=== PATIENT | male | born 1940 | race Caucasian/White ===

== ENCOUNTER 2025-03-16 18:11 | Emergency (ER) | payer OTHER, MEDICARE, SELFPAY ==
--- OUTSIDE RECORDS SUMMARY | 2023-09-28 19:00 | XMS_ITS | Continuity of Care Document ---
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 Name Role Phone Erik DE LA CRUZ, Rosanna Unavailable Unavailable Procedures Procedure Date Subsqt Hosp-da E&m Minr Compl 3 Subsqt Hosp-da E&m Minr Compl 3 Init Hosp-da E&m Hi Severity 7 23 Ugi Endo; W/bx 1/mx Conscious Sedation Advance Directives Directive Yes / No Effective Date File Name No Information Encounters Encounter Description Practice Location Reason(s) For Visit Diagnoses Date Provider Providers Copied on Encounter Subsqt Hosp-da E&m Minr Compl [facility] [place], [address] [address], [place], [place], [id number], [place] tel:[phone] [facility] No Information 3 Erik Marte. [address] [place] [address], [address], [id number] , [place]. [phone] Referring Provider: Rosanna Valencia NP P, [address] [place] [address] [address], [place], [address] . tel:[phone] Init Hosp-da E&m Hi Severity 7 [facility] [place], [address] [address], [place], [place], [id number], [place] tel:[phone] [facility] No Information 3 Aleksandra Swift. [address] [place] [address], [facility] [address], [place], [place], [id number] , [place]. [phone] Referring Provider: Cristi Ledezma, [address], [place], [address]. tel:[phone] Family History Family Member Type Diagnosis Age At Onset No Information Payers Payer name Insurance type Covered green party ID Authoriza tion(s) [facility] Medic are Complete CI [id number] Social History Type Description Quantity Date Captured Comments Sex Male Smoking Status No Information Chief Complaint And Reason For Visit No Information Reason For Referral Reason For Referral No Information History Of Present Illness Encounter Date Complaint History Of Prese nt Illness No Information Functional Status Date Functional Assessmen t No Information Instructions Date Instruction Additional Infor mation No Information Assessments Type Assessment Date No Information Patient Care Teams Name Effective Dates (start - stop) Status Members No Information
--- OUTSIDE RECORDS SUMMARY | 2023-09-28 19:00 | XMS_ITS | Continuity of Care Document ---
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 [address] [place] [address], [address], [id number] , [place]. [phone] Referring Provider: Rosanna Valencia NP P, [address] [place] [address] [address], [place], [address] . tel:[phone] Init Hosp-da E&m Hi Severity 7 [facility] [place], [address] [address], [place], [place], [id number], [place] tel:[phone] [facility] No Information 3 Aleksandra Swift. [address] [place] [address], [facility] [address], [place], [place], [id number] , [place]. [phone] Referring Provider: Cristi Ledezma, [address], [place], [address]. tel:[phone] Family History Family Member Type Diagnosis Age At Onset No Information Payers Payer name Insurance type Covered democrat ID Authoriza tion(s) [facility] Medic are Complete CI [id number] Social History Type Description Quantity Date Captured [...]
[2025-03-16] VITALS (19 sets, daily range): BP systolic 137–173; BP diastolic 84–111; PULSE 68–84; RESP 18; TEMP 36.8–36.9; O2SAT 92–99; BMI 32.3
--- OUTSIDE RECORDS SUMMARY | 2025-03-16 18:14 | XMS_ITS | Clinical Summary ---
Author Organization [facility] Address [address] [place] [address] Care Team Providers Care Central Scheduler Name Role Phone Cristi Rosas [place] Primary Care Provider [phone] Allergies No known active allergies Medications albuterol (PROAIR HFA/PROVENTIL HFA/VENTOLIN HFA) 108 (90 Base) MCG/ACT inhaler 1 Active atorvastatin (LIPITOR) 40 MG tablet Take 40 mg by mouth daily 1 Active beclomethasone HFA (QVAR REDIHALER) 80 MCG/ACT inhaler Inhale 2 puffs into the lungs 1 Active doxycycline hyclate (VIBRAMYCIN) 100 MG capsule Take 100 mg by mouth 1 Active blood glucose (CONTOUR NEXT TEST) test strip USE TO TEST DAILY DIRECTED 1 Active hydrocortisone (CORTAID) 1 % external cream 1 Active ketoconazole (NIZORAL) 2 % external cream 1 Active simvastatin (ZOCOR) 40 MG tablet 1 Active sotalol (BETAPACE) 120 MG tablet Take 120 mg by mouth 1 Active warfarin ANTICOAGULANT (COUMADIN) 2 MG tablet Take by mouth 9 mg (2 mg x 4.5) every Tue, Tue; 8 mg (2 mg x 4) all other days Or as directed 1 Active Family History Medical History Relation Comments Prostate Cancer Father Relation Status Comments Father Social History Tobacco Use Types Packs/Day Years Used Date Smoking Tobacco: Former Smokeless Tobacco: Former Alcohol Use Standard Drinks/Week Comments Not Currently 0 (1 standard drink = 0.6 oz pur e alcohol) Adolescent Education Answer Date Record ed Getting School Help Needed Not on file 07/24 Sex and Gender Information Value Date Recorded Sex Assigned at Not on file Legal Sex Male 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 Gender Identity Not on file Sexual Orientation Not on file Last Filed Vital Signs Vital Sign Reading Time Taken Comments Blood Pressure 114/72 08/31/2021 12:00 PM ALTERATION INSPECTOR Pulse 69 08/31/2021 12:00 PM ALTERATION INSPECTOR Temperature - - Respiratory Rate 20 08/31/2021 12:00 PM ALTERATION INSPECTOR Oxygen Saturation 98% 08/31/2021 12:00 PM ALTERATION INSPECTOR Inhaled Oxygen Concentration - - Weight 81.6 kg (180 lb) 08/31/2021 9:50 AM ALTERATION INSPECTOR Height 180.3 cm (5' 11) 08/31/2021 9:50 AM ALTERATION INSPECTOR Body Mass Index 25.1 08/31/2021 9:50 AM ALTERATION INSPECTOR Plan of Treatment Not on file Insurance [employer]AGE Care Teams Central Scheduler Relationship Specialty Start Date End Date Cristi Rosas [address] [place] [address] PCP - General Family Medicine 08/25/21
--- OUTSIDE RECORDS SUMMARY | 2025-03-16 18:14 | XMS_ITS | Clinical Summary ---
Author Organization [facility] Address [address] [place] [address] Care Team Providers Care General Office Associate Name Role Phone Cristi Rosas MD Primary Care Provider Otis Delcid Unavailable Allergies Active Allergy Reactions Criticality Noted Date Comments Indomethacin Other - Describe In Comment Field 07/06/2017 confusion Penicillins Other - Describe In Comment Field 02/11/2017 Patient report positive skin test years ago Ragweed Pollen Runny Nose 02/11/2017 Sulfa (Sulfonamide Antibiotics) Hives High 07/12/2018 Medications cetirizine (ZYRTEC) 10 mg tablet Take 10 mg by mouth once daily if needed for Allergy Symptoms. 0 017 Active multivitamins-min erals-lutein (Multivitamin 50 Plus) tab tablet Take 1 Tablet by mouth once daily. Active clindamycin (CLEOCIN) 300 mg capsuleIndication s:SBE (subacute bacterial endocarditis) prophylaxis candidate TAKE 2 CAPSULES BY MOUTH 1 HOUR BEFORE DENTAL PROCEDURE. 2 Capsule 2 024 Active atorvastatin (LIPITOR) 40 mg tabletIndications :Hyperlipidemia, unspecified hyperlipidemia type Take 1 Tablet (40 mg) by mouth at bedtime. 90 Tablet 3 024 Active tamsulosin (FLOMAX) 0.4 mg capsuleIndication s:Urinary retention Take 1 Capsule (0.4 mg) by mouth once daily after a meal. 90 Capsule 3 024 Active carvediloL (COREG) 3.125 mg tabletIndications :Persistent atrial fibrillation (HC),Chronic systolic CHF (congestive heart failure) (HC) Take 1 Tablet (3.125 mg) by mouth two times daily with meals. Further refills will be given at follow up in February of 2025. 180 Tablet 3 025 Active ezetimibe 10 mg tabletIndications :Hyperlipidemia, unspecified hyperlipidemia type Take 1 Tablet (10 mg) by mouth once daily. 90 Tablet 3 025 Active metFORMIN 500 mg Extended-Release tabletIndications :Controlled type 2 diabetes mellitus without complication, without long-term current use of insulin (HC) Take 1 Tablet (500 mg) by mouth once daily. 90 Tablet 1 025 Active beclomethasone dipropionate (Qvar RediHaler) 80 mcg/actuation HFAb HFA inhalerIndication s:Moderate persistent asthma without complication (HC) Inhale 1 Puff by mouth two times daily. Doesn't need a spacer or shaking. 10.6 g 12 025 Active olmesartan 5 mg tabletIndications :Essential hypertension Take 1 Tablet (5 mg) by mouth once daily. 90 Tablet 3 025 Active warfarin 2 mg tabletIndications :Persistent atrial fibrillation (HC),Anticoagulat ion monitoring, INR range 2-3 Take by mouth 10 mg (2 mg x 5) every e, Tue; 8 mg (2 mg x 4) all other days in the evening OR as directed 400 Tablet 025 Active albuterol HFA 90 mcg/actuation inhalerIndication s:Moderate persistent asthma without complication (HC) INHALE 2 INHALATIONS BY MOUTH EVERY 6 HOURS IF NEEDED FOR SHORTNESS OF BREATH 34 g 3 025 Active doxycycline hyclate 100 mg capsuleIndication s:Rosacea TAKE 1 CAPSULE 5 DAYS PER WEEK (TUESDAY, TUESDAY, TUESDAY, TUESDAY, TUESDAY) 60 Capsule 5 025 Active blood sugar diagnostic (Contour Next Test Strips) stripIndications: Controlled type 2 diabetes mellitus without complication, without long-term current use of insulin (HC) As directed once daily. 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 Quick on 09/12/2023 S/P AVR (aortic valve replacement) 09/12/2023 09/12/2023 Overview (09/12/2023): Valve Aortic 25mm Inspirus Resilia Tissue - [id number] Expires:07/13/2027Implanted by:Froy Rice S/P left atrial appendage ligation 09/12/2023 09/12/2023 Overview (09/12/2023): Occluder COLEEN 45mm Atriclip Flex V Exclusion Sys - [id number] Implanted by:Froy Rice Dilated cardiomyopathy 09/06/2023 Overview (09/06/2023): EF 30-35% Pulmonary hypertension 01/27/2022 Persistent atrial fibrillati on (HC) per 06/25/21 discharge note 07/11/2021 Atrioventricular node dysfunction 06/25/2021 LBBB (left bundle branch block) 06/25/2021 S/P dual chamber permanent p acemaker implantation on 06/25/2021 06/25/2021 Anticoagulation monitoring, INR range 2-3 2020 Rosacea 02/01/2019 Controlled type 2 diabetes m ellitus without complication, without long-term current use of insulin 07/06/2017 Uncomplicated asthma 07/06/2017 Hyperlipidemia, unspecified 02/11/2017 Essential hypertension 02/11/2017 Resolved Problems Problem Noted Date Diagnosed Date Resolved Date Acute upper GI bleed 09/28/2023 024 Acute blood loss anemia 09/28/202307/17 Coagulopathy 09/28/2023 01/31/2024 On mechanically assisted ventilation 09/12/2023 01/31/2024 Groin hematoma 09/11/2023 07/30/2024 Nonrheumatic aortic valve stenosis 09/06/2023 07/30/2024 Cardiovascular symptoms 09/06/202307/17 Prediabetes 02/11/2017 07/06/2017 Encounters Date Type Department Care Team Description 03/09/2025 Telephone [facility] [[email or web address] [address] [place] [address] Cristi Rosas MD Anticoagulation (OPV DOXYCYCLINE) 03/08/2025 1:30 PM CDT Office Visit [facility] [address] [place] [address] Jeannine Gibbs MD Follow Up (Follow up S/P AVR ) 03/08/2025 Travel 03/07/2025 Refill [facility] [[email or web address]] [address] [place] [address] Cristi Rosas MD Refill Request (T/S contour next test strip) 03/07/[address] [address] Cristi Rosas MD Refill Request (Doxycycline Hyclate) 03/01/2025 11:15 AM CDT Orders Only [address] [address] [place] [facility] 03/01/2025 10:00 AM CDT Ancillary Procedure [facility] [address] [place] [address] 03/01/2025 Anticoagulation (warfarin) [facility] [[email or web address] [address] [place] [address] 1, [place] [facility] Anticoagulation 03/01/2025 Travel 02/26/2025 Telephone [facility] [[email or web address]] [address] [place] [address] Cristi Rosas MD Anticoagulation (Lab Clarification ) 02/07/2025 Orders Only [facility] Scanner 1 scan: (1-Ord) [facility], 02/07/2025 02/03/2025 Refill [facility] [[email or web address]] [address] [place] [address] Cristi Rosas MD Refill Request (Albuterol Hfa) 02/01/2025 Refill [facility] [[email or web address]] [address] [place] [address] Cristi Rosas MD Refill Request (Warfarin) 01/31/2025 9:45 AM CDT Office Visit [facility] [[email or web address]] [address] [place] [address] Crsiti Rosas MD Diabetes (6 month follow up) 01/31/2025 Anticoagulation (warfarin) [facility] [[email or web address]] [address] [place] [address] 1, [facility] [facility] Anticoagulation 01/31/2025 Travel 01/19/2025 Anticoagulation (warfarin) [facility] [[email or web address]] [address] [place] [address] Cristi Rosas MD Anticoagulation (Out of state lab); Error-please disregard (opened in error) 01/18/2025 Orders Only [facility] Scanner 1 scan: (1-Ord) [facility], INR/PRO TIME RESULTS, 01/18/2025 12/19/2024 Orders Only [facility] Scanner 1 scan: (1-Ord) [facility], PT, 12/19/2024 12/19/2024 Telephone [facility] [[email or web address]] [address] [facility] [address] Cristi Rosas MD Anticoagulation (Out of State) 12/19/2024 Anticoagulation (warfarin) [facility] [[email or web address]] [address] [place] [address] 1, [place] [facility] Anticoagulation (Out of State) 12/18/2024 Orders Only [facility] Scanner 1 scan: (1-Ord) [facility], PROTHROMBIN TIME , 12/18/2024 from Last 3 Months Immunizations Immunization Administration Dates Next Due COVID-19 vaccine (Moderna 100mcg/0.5mL) REBECCA QUINTANA 01/09/2021,12/12/2020 Influenza, Inactivated AIIV4 (Age 65+ Years) Preserv Free 07/26/2023,07/21/2022,07/29/2021,07/30 Influenza, Inactivated IIV3 (Age 65+ Years) Preserv Free 07/30/2024,07/04/2019,06/26/2018,07/06 Pneumococcal Conj 20-valent (Prevnar 20) 07/30/2024 Pneumococcal Poly,23-Valent (Pneumovax) 08/30/2007 Pneumococcal, Unspecified 02/04/2015,08/30/2007 RSV, Recombinant ADJ Reconst ituted (Arexvy 120MCG/0.5mL) 08/01/2023 Tdap 07/25/2014 Zoster (Shingrix-RZV, recombinant) 07/17/2019, Zoster (Zostavax-ZVL, live) 02/17/2011 Family History Medical History Relation Name Comments Cancer-prostate Father Diabetes type II Mother Relation Name Status Comments Father Mother Social History Tobacco Use Types Packs/Day Years Used Date Smoking Tobacco: Former Cigarettes 1 20 0 10/17/1959 - 10/17/1979 Smokeless Tobacco: Never Tobacco Cessation:Counseling Given: Yes Alcohol Use Standard Drinks/Week Comments Yes 0 (1 standard drink = 0.6 oz pur e alcohol) occasional beer PHQ-2 Answer Date Recorded PHQ-2 TOTAL SCORE 0 07/30/2024 Social Connections Answer Date Recorded Do you often feel lonely or isolated from those around you? 0 01/31/2025 Financial Resource Strain Answer Date R ecorded Difficulty of Paying Living Expenses 3 01/31/2025 Difficulty of Paying Living Expenses Not on file 01/31/2025 Food Insecurity Answer Date Recorded Do you worry your food will run out before you are able to buy more? 1 01/31/2025 Transportation Needs Answer Date Record ed Does lack of transportation keep you from medica l appointments? 1 01/31/2025 Does lack of transportation keep you from work, meetings or getting things that you need? 1 01/31/2025 Housing Stability Answer Date Recorded What is your housing situation today? 1 01/31/2025 Utilities Answer Date Recorded Do you have trouble paying f or utilities (for example, heat, electricity, water, phone)? 1 01/31/2025 Sex and Gender Information Value Date Recorded Sex Assigned at Not on file Legal Sex Male 12:08 PM CDT Gender Identity Not on file Sexual Orientation Not on file Obstetrics History Last Filed Vital Signs Vital Sign Reading Time Taken Comments Blood Pressure 161/96 03/08/2025 1:28 PM CDT Pulse 75 03/08/2025 1:28 PM CDT Temperature 36.6 C (97.8 F) 11/02/2023 9:29 AM ASSISTANT PRODUCE MANAGER Respiratory Rate 16 11/02/2023 9:29 AM ASSISTANT PRODUCE MANAGER Oxygen Saturation 98% 03/08/2025 1:28 PM CDT Inhaled Oxygen Concentration - - Weight 84.8 kg (187 lb) 03/08/2025 1:28 PM CDT Height 178.4 cm (5' 10.24) 07/30/2024 9:07 AM C DT Body Mass Index 26.65 07/30/2024 9:07 AM CDT Plan of Treatment Upcoming Encounters Date Type Department Care Team (Late st Contact Info) Description 03/28/2025 Cardiac Device Check [facility] [place] [facility] [place] [phone] 03/29/2025 1:15 PM CDT Orders Only [facility] [[email or web address]] [address] [facility] [place] [address] [place] 07/30/2025 7:30 AM CDT Orders Only [facility] [[email or web address]] [address] [place] [address] [place] 07/31/2025 9:15 AM CDT Office Visit [facility] [[email or web address]] [address] [place] [address] Cristi Rosas MD [address] [place] [address] Health Maintenance Due Date Last Done Comments COVID-19 vaccine series ( season) 2024 09/14/2021, 01/09/2021, 12/12/2020 Tetanus booster 07/25/2024 07/25/2014 BMI (ht and wt on same day) for age 18+ 07/30/2025 07/30/2024, 08/18/2023, 07/26/2023, Additional history exists Depression screening for age 12+ 07/30/2025 07/30/2024, 07/29/2023, 07/26/2023, Additional history exists Medicare Wellness for age 65+ 07/31/2025 07/30/2024, 07/26/2023, 07/29/2021, Additional history exists Tdap Completed 07/25/2014 Zoster (shingles) series for age 50+ Completed 07/17/2019, 05/01/2019, 02/17/2011 RSV vaccine for adults or Completed 08/01/2023 Influenza Vaccine Completed 07/30/2024, , 07/21/2022, Additional history exists Pneumococcal series for age 50+ Completed 07/30/2024, 02/04/2015, 08/30/2007, Additional history exists Hepatitis B series for 19+ Aged Out N o longer eligible based on patient's age to complete this topic Medical Devices Implanted Type Area Safety Fire Boss Device Identifier Shelf Expiration Date Model / Serial / Lot Occluder Coleen 45mm Atriclip Flex V Exclusion Sys - [id number] Implanted:Qty: 1 on 09/12/2023 by Froy Rice MD at [facility] N/A: Heart [employer] 06/17/2026 [id number] / [id number] Valve Aortic 25mm Inspirus Resilia Tissue - [id number] Implanted:Qty: 1 on 09/12/2023 by Froy Rice MD at [facility] N/A: Heart [employer] 07/13/2027 [id number] / [id number] / Procedures Procedure Name Priority Date/Time Associated Diagnosis Comments PROTIME-INR Routine 03/01/2025 10:33 AM CDT Persistent atrial fibrillation (HC) per 06/25/21 discharge note Anticoagulation monitoring, INR range 2-3 BASIC METABOLIC PANEL Routine 03/01/2025 10:33 AM CDT Essential hypertension ECHO TTE COMPLETE WO CONTRAST Routine 03/01/2025 10:18 AM CDT S/P AVR SCAN-EYE EXAM 02/07/2025 12:00 AM CDT HEMOGLOBIN A1C MONITORING (POCT) Routine 01/31/2025 10:21 AM CDT Controlled type 2 diabetes mellitus without complication, without long-term current use of insulin (HC) PROTIME-INR Routine 01/31/2025 10:20 AM CDT Persistent atrial fibrillation (HC) per 06/25/21 discharge note Anticoagulation monitoring, INR range 2-3 SCAN-LABORATORY REPORT 01/18/2025 12:00 AM CDT SCAN-LABORATORY REPORT 12/19/2024 12:00 AM ASSISTANT PRODUCE MANAGER SCAN-LABORATORY REPORT 12/18/2024 12:00 AM ASSISTANT PRODUCE MANAGER INR,POCT Routine 12/18/2024 from Last 3 Months Results * (ABNORMAL) PROTIME-INR [12922.0] - Standing Order (03/01/2025 10:33 AM CDT) Only the most recent of2 resultswithin the time period is included. INR 2.4(H) <1.3 03/01/2025 3:32 PM CDT [facility] PROTIME 28.2(H) 10.6 - 12.4 sec 03/01/2025 3:32 PM CDT [facility] Blood BLOOD SPECIMEN / Unknown [facility] / Unknown 03/01/2025 10:33 AM CDT 03/01/2025 10:[address] [facility] - 03/01/2025 3:32 PM CDT Therapeutic Range 2.0-3.0 for most anticoagulated patients 2.5-3.5 or 4.0 for high risk patients The INR is only used for patients on stable oral anticoagulant therapy. It makes no significant contribution to the diagnosis or treatment of patients whose Protime is prolonged for other reasons. INR results are increased when heparin levels exceed 1.0 U/mL, which corresponds to an aPTT >125 seconds if the patient is on UFH. us Cristi Rosas MD HEMATOLOGY Final Result [facility] [address] [place] [address], * (ABNORMAL) BASIC METABOLIC PANEL (03/01/2025 10:33 AM CDT) GLUCOSE 129(H) 65 - 99 mg/dL [facility] Comment: Fasting reference interval For someone without known diabetes, a glucose value >125 mg/dL indicates that they may have diabetes and this should be confirmed with a follow-up test. UREA NITROGEN (BUN) 18 7 - 25 mg/dL [facility] CREATININE 0.74 0.70 - 1.22 mg/dL [facility] EGFR 89 > OR = 60 mL/min/1. 73m2 [facility] BUN/CREATININE RATIO SEE NOTE: 6 - 22 (calc) [facility] Comment: Not Reported: BUN and Creatinine are within reference range. SODIUM 139 135 - 146 mmol/L [facility] POTASSIUM 4.4 3.5 - 5.3 mmol/L [facility] CHLORIDE 105 98 - 110 mmol/L [facility] CARBON DIOXIDE 27 20 - 32 mmol/L [facility] ELECTROLYTE BALANCE 7 7 - 17 mmol/L (calc) [facility] CALCIUM 9.9 8.6 - 10.3 mg/dL [facility] Blood BLOOD SPECIMEN / Unknown 03/01/2025 10:33 AM CDT 03/01/2025 10:33 AM CDT us Cristi Rosas MD CHEMISTRY Final Result [facility] [address] [place] [address], [facility] [address] [place] [address] * ECHO TTE COMPLETE WO CONTRAST (03/01/2025 10:18 AM CDT) AORTIC VALVE MEAN PG 10 mmHg EJECTION FRACTION 41 % PEAK TR VELOCITY 2.8 m/s LVEDD 4.9 cm Anatomical Region Laterality Modality Ultrasound 03/01/2025 9:53 AM CDT Narrative 03/01/2025 10:35 AM CDT ECHOCARDIOGRAM MILA ESPINO : 1940 85 years Study Date: 03/01/2025 9:53:56 AM Gender: M BP: 152/80 mmHg Height: 178.00 cm BSA: 2.01 m Weight: 83.00 kg Tech: JULIETH Referring MD: JEANNINE GIBBS Site: [facility] Reading Location: Mobile-OP Patient Location: Outpatient. Procedure: 2D, Color Doppler and Spectral Doppler. Indication for study: S/P AVR Cardiac Rhythm: Ventricular paced.Study quality: Good. Final Impressions: 1. Normal left ventricular size, normal wall thickness, mildly reduced global systolic function, calculated EF of 41 %. 2. Abnormal septal motion consistent with RV pacemaker. 3. Inferior wall is hypokinetic. 4. Right ventricular cavity size is normal, global systolic RV function is moderately reduced. 5. The aortic valve is Inspiris bioprosthesis AVR, no stenosis (details below) and no regurgitation. 6. The mitral valve is normal, mild mitral regurgitation. 7. Normal estimated pulmonary pressures by tricuspid regurgitation velocity and right atrial pressure (31 mmHg plus RAP). Comparison Compared to prior exam of 02/22/24: Estimated pulmonary artery systolic pressure is now normal. Chamber Sizes and Function Normal left ventricular size, normal wall thickness, mildly reduced global systolic function, calculated EF of 41 %. Abnormal (paradoxical) septal motion, consistent with RV pacemaker. Left atrial size is mildly enlarged. Left atrial pressure is normal. Right ventricular cavity size is normal, global systolic RV function is moderately reduced. RV wall thickness is normal. The right atrium is mildly enlarged. Right atrial volume index is 50 ml/m . Right atrial area is 28 cm . The pulmonary artery is of normal size and origin. The sinus of Valsalva is normal sized. The ascending aorta is normal for age/sex/bsa. The inferior wall is hypokinetic. Valves, RV Pressures and Diastolic Function The aortic valve is Inspiris bioprosthesis replacement, no stenosis and no regurgitation. The mitral valve is normal in structure, mild mitral regurgitation. Indeterminate pattern of LV diastolic filling. The tricuspid valve is normal in structure, mild tricuspid regurgitation. The tricuspid regurgitant velocity is 2.8 m/s, the estimated right ventricular systolic pressure is 31 mmHg plus right atrial pressure. There is normal estimated pulmonary pressure by tricuspid regurgitation velocity and right atrial pressure. The pulmonic valve is normal. No pulmonary regurgitation. Masses, Effusion, Shunts There is no pericardial effusion. The inferior vena cava is normal sized, respiratory size variation greater than 50%. No left to right shunting was detected by limited color flow Doppler interrogation of the interatrial septum. MEASUREMENTS AND CALCULATIONS 2-D Measurements and LV Function: LVID (d) 4.9 cm Planimetered EF 41 % LVID (s) 3.9 cm LV FS% (2D) 19 % IVS (d) 0.9 cm LVOT diameter 2.1 cm LVPW (d) 1.0 cm HR 73 bpm Ao Sinus ULN 4.2 cm * LA Vol index 36 ml/m2 Asc Ao 3.9 cm RA Vol index 50 ml/m2 Asc Ao ULN 4.4 cm * RA area 28 cm LA 4.6 cm RV Basal Diam 3.4 cm * Input age outside of range, reported values correspond to Age = 80 Diastology: Mitral Tissue Doppler E Peak 0.8 m/s e', Septum 0.05 m/s DT 207 msec e', Lateral 0.12 m/s E/e' Average 9.96 Aortic Valve: Vmax 2.0 m/s JULIANNE (V) 1.38 cm VTI 0.39 m JULIANNE (I) 1.41 cm LVOT V max 0.8 m/s Max PG 16 mmHg LVOT VTI 0.16 m Mean PG 10 mmHg SV 55 ml Dim Index 0.42 SV index 27 ml/m CO 4.0 l/min CI 2.0 l/min/m Mitral Valve: MVA 3.7 cm MV P 1/2 60 msec Tricuspid Valve and estimated PA pressures: TR Vmax 2.8 m/s TAPSE 1.2 cm TR maxG 31 mmHg . This study was interpreted by an [facility] accredited facility. Final Procedure Note Darren Souza MD - 03/01/2025 ECHOCARDIOGRAM MILA ESPINO : 1940 85 years Study Date: 03/01/2025 9:53:56 AM Gender: M BP: 152/80 mmHg Height: 178.00 cm BSA: 2.01 m Weight: 83.00 kg Tech: Rafael Referring MD: JEANNINE GIBBS Site: [facility] Reading Location: Mobile-OP Patient Location: Outpatient. Procedure: 2D, Color Doppler and Spectral Doppler. Indication for study: S/P AVR Cardiac Rhythm: Ventricular paced.Study quality: Good. Final Impressions: 1. Normal left ventricular size, normal wall thickness, mildly reducedglobal systolic function, calculated EF of 41 %. 2. Abnormal septal motion consistent with RV pacemaker. 3. Inferior wall is hypokinetic. 4. Right ventricular cavity size is normal, global systolic RV functionis moderately reduced. 5. The aortic valve is Inspiris bioprosthesis AVR, no stenosis (detailsbelow) and no regurgitation. 6. The mitral valve is normal, mild mitral regurgitation. 7. Normal estimated pulmonary pressures by tricuspid regurgitationvelocity and right atrial pressure (31 mmHg plus RAP). Comparison Compared to prior exam of 02/22/24: Estimated pulmonary artery systolic pressure is now normal. Chamber Sizes and Function Normal left ventricular size, normal wall thickness, mildly reduced globalsystolic function, calculated EF of 41 %. Abnormal (paradoxical) septalmotion, consistent with RV pacemaker. Left atrial size is mildly enlarged.Left atrial pressure is normal. Right ventricular cavity size is normal,global systolic RV function is moderately reduced. RV wall thickness isnormal. The right atrium is mildly enlarged. Right atrial volume index is50 ml/m . Right atrial area is 28 cm . The pulmonary artery is of normalsize and origin. The sinus of Valsalva is normal sized. The ascendingaorta is normal for age/sex/bsa. The inferior wall is hypokinetic. Valves, RV Pressures and Diastolic Function The aortic valve is Inspiris bioprosthesis replacement, no stenosis and noregurgitation. The mitral valve is normal in structure, mild mitralregurgitation. Indeterminate pattern of LV diastolic filling. Thetricuspid valve is normal in structure, mild tricuspid regurgitation. Thetricuspid regurgitant velocity is 2.8 m/s, the estimated right ventricularsystolic pressure is 31 mmHg plus right atrial pressure. There is normalestimated pulmonary pressure by tricuspid regurgitation velocity and rightatrial pressure. The pulmonic valve is normal. No pulmonaryregurgitation. Masses, Effusion, Shunts There is no pericardial effusion. The inferior vena cava is normal sized,respiratory size variation greater than 50%. No left to right shunting wasdetected by limited color flow Doppler interrogation of the interatrialseptum. MEASUREMENTS AND CALCULATIONS 2-D Measurements and LV Function: LVID (d) 4.9 cm Planimetered EF 41% LVID (s) 3.9 cm LV FS% (2D) 19% IVS (d) 0.9 cm LVOT diameter2.1 cm LVPW (d) 1.0 cm HR 73bpm Ao Sinus ULN 4.2 cm * LA Vol index 36ml/m2 Asc Ao 3.9 cm RA Vol index 50ml/m2 Asc Ao ULN 4.4 cm * RA area 28cm LA 4.6 cm RV Basal Diam3.4 cm * Input age outside of range, reported values correspond to Age = 80 Diastology: Mitral Tissue Doppler E Peak 0.8 m/s e', Septum 0.05 m/s DT 207 msec e', Lateral 0.12 m/s E/e' Average 9.96 Aortic Valve: Vmax 2.0 m/s JULIANNE (V) 1.38 cm VTI 0.39 m JULIANNE (I) 1.41 cm LVOT V max 0.8 m/s Max PG 16 mmHg LVOT VTI 0.16 m Mean PG 10 mmHg SV 55 ml Dim Index 0.42 SV index 27 ml/m CO 4.0 l/min CI 2.0 l/min/m Mitral Valve: MVA 3.7 cm MV P 1/2 60 msec Tricuspid Valve and estimated PA pressures: TR Vmax 2.8 m/s TAPSE 1.2 cm TR maxG 31 mmHg . This study was interpreted by an [facility] accredited facility. Final us Jeannine Gibbs MD ECHO ORD Final R esult * SCAN-EYE EXAM (02/07/2025 12:00 AM CDT) us Scanner OTHER Final Result * (ABNORMAL) HEMOGLOBIN A1C MONITORING (POCT) (01/31/2025 10:21 AM CDT) POC HEMOGLOBIN A1C 6.0(H) <6.0 % OF TOTAL HGB [facility] Comment: Any point of care results exhibiting inconsistency with the patient's clinical status should be repeated using a different testing method. Blood BLOOD SPECIMEN / Unknown 01/31/2025 10:21 AM CDT 01/31/2025 10:22 AM CDT Narrative [facility] - 01/31/2025 10:49 AM CDT FASTING:YES FASTING: YES us Cristi Rosas MD CHEMISTRY Final Result [facility] [address] [place] [address], [place] [phone] [facility] [address] [place] [address] * SCAN-LABORATORY REPORT (01/18/2025 12:00 AM CDT) Only the most recent of3 resultswithin the time period is included. us Scanner OTHER Final Result * (ABNORMAL) INR,POCT (12/18/2024) INR 3.0(EXTERNA L) [facility] Blood BLOOD SPECIMEN / Unknown 12/18/2024 Narrative Resulting Agency Comment [address], [place] [address] us Patient Reported LABORATORY Final Result [facility] [address] [place] [address] from Last 3 Months Insurance [facility] Advance Directives Documents on File Type Date Recorded Patient Float Remover Expl anation Healthcare Directive 09/07/2023 10:32 AM living will * Full Code (Latest Code Status on File) Date Activated Date Inactivated Comments 09/28/2023 11:23 AM 10/02/2023 2:42 PM Question Answer Comments Code Status Discussion: Reviewed Preferences * Full Code Date Activated Date Inactivated Comments 09/06/2023 8:24 AM 09/22/2023 3:12 PM Question Answer Comments Code Status Discussion: Reviewed Preferences * Full Code Date Activated Date Inactivated Comments 08/24/2023 7:35 AM 08/24/2023 11:39 AM Question Answer Comments Code Status Discussion: Reviewed Preferences * Full Code Date Activated Date Inactivated Comments 08/04/2021 2:12 PM 08/04/2021 5:26 PM Question Answer Comments Code Status Discussion: Not Discussed * Full Code Date Activated Date Inactivated Comments 06/25/2021 10:29 AM 06/25/2021 7:22 PM Question Answer Comments Code Status Discussion: Not Discussed Care Teams General Office Associate Relationship Specialty Start Date End Date Cristi Rosas MD [address] [place] [address] PCP - General Family Practice 01/27/17 Otis Delcid COTA [address] [place] [address] Occupational Therapy 09/23/23
--- NOTE | 2025-03-16 18:15 | CRLHL7_ITS ---
For Patients: As a result of the Century Cures Act, medical imaging exams and procedure reports are released immediately into your electronic medical record. You may view this report before your referring provider. If you have questions, please contact your health care provider. INDICATION: Headaches. Trauma TECHNIQUE: Noncontrast axial CT of the head is submitted. COMPARISON: Compared to prior study from September 14, 2021 FINDINGS: Mild cerebral atrophy. The ventricles, sulci and gyri are of normal size, shape and contour for age and degree of atrophy. Midline structures are centrally located. No convincing evidence of suspicious intra- or extra-axial fluid collections. Mild patchy regions of decreased attenuation within the periventricular and subcortical white matter of both cerebral hemispheres. IMPRESSION: 1. No radiographic evidence of acute intracranial abnormalities. 2. Mild cerebral atrophy. 3. Mild supratentorial white matter changes that are non-specific, but statistically most likely related to chronic small vessel ischemic disease. Please note that all CT scans at this facility use dose modulation, iterative reconstruction, and/or weight-based dosing when appropriate to reduce radiation dose to as low as reasonably achievable. Dictated by Tiburcio Quick MD @ 03/16/2025 6:37:16 PM (Electronically Signed)
--- NOTE | 2025-03-16 18:15 | CRLHL7_ITS ---
For Patients: As a result of the 21st Century Cures Act, medical imaging exams and procedure reports are released immediately into your electronic medical record. You may view this report before your referring provider. If you have questions, please contact your health care provider. INDICATION: Trauma. TECHNIQUE: Multiplanar CT examination of the chest, abdomen and pelvis was performed after the administration of 89 mL of Isovue 370 intravenous contrast. COMPARISON: None. FINDINGS: CHEST: Lines/devices: Left anterior chest wall pacemaker pulse generator. Lower neck: Visualized thyroid appears unremarkable. Cardiovascular: Cardiomegaly. Mild atherosclerotic calcifications of the thoracic aorta. Normal caliber of the thoracic aorta and pulmonary artery. Dense coronary arterial calcifications. Mediastinum and lymph nodes: No pathologic lymphadenopathy by size criteria. Moderate hiatal hernia. Lungs: No focal consolidation. Pulmonary emphysema. Biapical pleural-parenchymal scarring. Minor bandlike opacification lungs bilaterally, likely subsegmental atelectasis and/or scarring. Pleura: No pleural effusions or pneumothorax. Chest wall: No axillary lymphadenopathy. Unremarkable. Bones: No acute osseous abnormalities. No acute displaced rib fractures. Median sternotomy wires. Multilevel degenerative changes of the visualized thoracic spine. ABDOMEN AND PELVIS: Liver: Right posterior hepatic dome hypodensity, possibly a hepatic cyst or hemangioma. Gallbladder: Cholelithiasis. Biliary: Mild intrahepatic biliary ductal dilatation. No extrahepatic biliary ductal dilatation. Pancreas: Within normal limits. Spleen: Unremarkable. Adrenals: Unremarkable. Kidneys/ureters/bladder: Kidneys are normal in size. No obstructive urinary calculus or hydronephrosis. No obstructive uropathy. The bladder is within normal limits. Multi-cystic kidneys. Gastrointestinal: No bowel wall thickening or bowel obstruction. The appendix is not definitively visualized. Scattered colonic diverticulosis. Mild colonic stool burden. Pelvic structures: Unremarkable prostate. Vascular: No significant atherosclerotic calcifications of the abdominal aorta. No aneurysm. Peritoneum: No free fluid or pneumoperitoneum. No drainable fluid collections. Lymph nodes: No pathologic lymphadenopathy by size criteria. Abdominal wall/soft tissues: Unremarkable. Bones: No acute osseous abnormalities. Multilevel degenerative changes of the lumbar spine. IMPRESSION: 1. No acute intrathoracic or abdominopelvic pathology. No CT sequelae of trauma. 2. Mild intrahepatic biliary ductal dilatation, nonspecific. No obstructing cholelithiasis or discrete mass lesion identified. Correlation with direct bilirubin and liver function testing is advised. Consider MRCP in a nonemergent, outpatient setting if clinically warranted. 3. Other chronic findings as detailed above. Please note that all CT scans at this facility use dose modulation, iterative reconstruction, and/or weight-based dosing when appropriate to reduce radiation dose to as low as reasonably achievable. Dictated by Rio Dawson MD @ 03/16/2025 9:13:54 PM (Electronically Signed)
--- NOTE | 2025-03-16 18:15 | CRLHL7_ITS ---
For Patients: As a result of the Century Cures Act, medical imaging exams and procedure reports are released immediately into your electronic medical record. You may view this report before your referring provider. If you have questions, please contact your health care provider. Indication: Neck pain. Trauma. Technique: Noncontrast axial CT of the cervical spine with coronal and sagittal reformats are provided. Compared to prior study from September 14, 2021 Findings: The overall stature, alignment of the cervical spine is within normal limits. No convincing evidence of suspicious bony fragments narrowing the central canal or neural foramina. Prevertebral soft tissues, cervical airway, dens and lateral masses are within normal limits. [id number]-[id number] scattered degenerative changes of the cervical spine. Stable fibrotic changes of the pulmonary apices. Impression: 1. No convincing radiographic evidence of acute osseous injury. 2. [id number] scattered degenerative changes of the cervical spine. Please note that all CT scans at this facility use dose modulation, iterative reconstruction, and/or weight-based dosing when appropriate to reduce radiation dose to as low as reasonably achievable. Dictated by Tiburcio Quick MD @ 03/16/2025 6:39:11 PM (Electronically Signed)
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
[2025-03-16 18:25] LABS: Basophils Absolute Auto 0.02 K/uL (0.00-0.30); Basophils Percent Auto 0.3 % (0.0-3.0); Eosinophils Absolute Auto 0.25 K/uL (0.00-0.50); Eosinophils Percent Auto 3.8 % (0.0-7.0); Hematocrit 42.5 % (37.0-53.0); Immature Granulocytes Abs Auto 0.01 K/uL (0.00-0.30); Immature Granulocytes Pct Auto 0.2 %; Lymphocytes Percent Auto 39.5 % (20-44); Mean Corpuscular HGB Conc 33 gm/dL (32-36); Mean Corpuscular Hemoglobin 30 pg (26-34); Mean Corpuscular Volume 91 fL (80-100); Monocytes Percent Auto 10.6 % (0.0-11.0); Neutrophils Percent Auto 45.6 % (42.0-72.0); Platelet Count* 198 K/uL (140-440); RDW Coefficient of Variation % 14.9 % (11.5-15.5); Red Blood Count 4.68 m/uL (4.30-5.90); White Blood Count* 6.58 K/uL (4.50-11.00)
[2025-03-16 18:26] LABS: Slide Review Reflex No
[2025-03-16 18:37] LABS: Chloride* 105 mmol/L (96-114); Sodium* 140 mmol/L (135-149)
[2025-03-16 18:38] LABS: Creatinine, Point-of-Care* 0.8 mg/dl (0.6-1.3)
[2025-03-16 18:40] LABS: Blood Urea Nitrogen* 21 mg/dL (7-30); Creatinine* 0.8 mg/dL (0.5-1.5); Estimated Glomerular Filt Rate 87 ml/min
[2025-03-16 18:41] LABS: Anion Gap 11 mEq/L (7-15); Carbon Dioxide* 24 mmol/L (20-32); Glucose* 119 mg/dL (60-115)
[2025-03-16 19:17] LABS: INR 2.06 (0.91-1.10); Prothrombin Time 24.3 Seconds
== END 2025-03-16 21:26 | disposition home or self-care (01) ==
PROVIDERS: Emergency Provider Emergency Medicine Emergency Medical Services; PCP Family Medicine
DX: R07.9 Chest pain, unspecified (principal); S61.412A Laceration without foreign body of left hand, initial encounter; V43.52XA Car driver injured in collision with other type car in traffic accident, initial encounter
CPT/HCPCS: 12001; 36415; 70450; 71260; 72125; 74177; 80048; 82565; 84484; 85025; 85610; 93005; 94761; 99284; 99291; G0390; Q9967